=== PATIENT | female | born 1970 | race Caucasian/White ===

== ENCOUNTER 2020-01-18 08:16 | Day surgery (SDC) | payer BC ==
[2020-01-18] MEDS ORDERED: Midazolam 1 MG/ML 2 ML SDV IV ONE (08:17)
[2020-01-18] MEDS ORDERED: Propofol 200 MG/20 ML SDV IV ONE (08:17)
[2020-01-18] MEDS ORDERED: Sodium Chloride 0.9% 10 ML Syringe FLUSH PRN (08:30)
[2020-01-18] MEDS ORDERED: Lactated Ringers 1,000 ML IV SCH (08:30)
--- NOTE | 2020-01-18 10:17 | PCM.OPNOTE ---
- General Post-Op/Procedure Note Date of Surgery/Procedure: 01/18/20 Operative Procedure(s): c scope Findings: suboptimal prep in some areas that could not be completely cleared. NO large polyps noted. smaller poly 1-2 mm size could have been missed. Pre Op Diagnosis: colon cancer screening Post-Op Diagnosis: Same Anesthesia Technique: MAC Primary Surgeon: Rishi Mcmullen Anesthesia Provider: Beverly Zuluaga Pathology: none Complications: None Condition: Good Free Text/Narrative:: see dictation recommend a repeat scope in 5 yrs.
--- NOTE | 2020-01-18 13:13 | OR ---
DATE OF OPERATION: 01/18/2020 SURGEON: Rishi Mcmullen MD PROCEDURE PERFORMED: Colonoscopy. PREOPERATIVE DIAGNOSIS: Need for colon cancer screening. POSTOPERATIVE DIAGNOSIS: Normal exam, suboptimal prep. INDICATIONS FOR PROCEDURE: This is a 49-year-old white female, presents for a colonoscopy. She was offered and accepted same. DESCRIPTION OF OPERATION: After an excellent IV sedation was administered, digital rectal exam was performed. No marked abnormality was noted. Flexible colonoscope was inserted and advanced to the cecum. The prep was marginal in some areas. We were able to irrigate the bulk of it, however, there were some areas roughly about 10% of the colonic exam where a small polyp could have been missed. We are talking in the size range of 1 to 2 mm in size as there was a thin coating in some areas that could not be completely cleared. The following findings, however, were noted. Ascending colon, unremarkable. Transverse colon, unremarkable. Suboptimal prep. Descending colon, unremarkable. Sigmoid, suboptimal prep with particulate matter, otherwise unremarkable. Rectum, unremarkable. The patient tolerated the procedure well, was taken to recovery room in good condition. I am recommending a repeat colonoscopy in 5 years for prudence sake. /[id number] /MODL
== END 2020-01-18 11:08 | disposition home or self-care (01) ==
LOC: FB.SDS 08:16
PROVIDERS: ATTEND Surgery
DX: Z12.11 Encounter for screening for malignant neoplasm of colon (principal); I10 Essential (primary) hypertension; F33.0 Major depressive disorder, recurrent, mild; F41.1 Generalized anxiety disorder; F90.9 Attention-deficit hyperactivity disorder, unspecified type; Z88.1 Allergy status to other antibiotic agents; Z79.899 Other long term (current) drug therapy
CPT/HCPCS: 45378; 81025; J2250; J2704; J7120